=== PATIENT | male | born 1990 | race Caucasian/White ===

== ENCOUNTER 2022-10-25 09:34 | Emergency (ER) | payer BC ==
[~2022-10-25] VITALS: Ht 170.2 cm; Wt 96.6 kg
[2022-10-25 09:52] VITALS: BP 134/84
--- NOTE | 2022-10-25 09:57 | NUR ---
DR SANCHEZ IN TRIAGE FOR EVAL
--- NOTE | 2022-10-25 10:11 | NUR ---
PT AMBULATED TO ER BED 8
--- NOTE | 2022-10-25 10:20 | NUR ---
32YO MALE PT C/O FATIGUENESS, DIZZINESS , CHEST PAIN , HEAD AND BODY ACHES XLASTNIGHT. REPORTS WAKING UP "CONFUSED" THIS MORNING "I WOULD FORGET WHAT I WAS IN THE MIDDLE OF DOING". STATES GOING TO URGENT CARE AND TOLD TO COME TO ER DUE TO CVA S/S. +MILD NAUSEA AND MILD DIFICULTY W/ RAISING EYEBROW. DENIES V/D, CHANGE IN VISION, NUMBING , FEVER, CHILL OR SOB. PT AAOX4, SPEAKING IN CLEAR FULL SENTENCES, AMBULATORY W/ STEADY GAIT. 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 BED AT LOWEST POSITION, BED RAILS UPX2. HX:DENIES NKA
--- NOTE | 2022-10-25 10:22 | NUR ---
pt swabbed for covid(tona) and flu. handed to lab
[2022-10-25 10:27] LABS: BASOPHILS % (AUTO) 0.1 % (0.0-2.0); EOSINOPHILS % (AUTO) 0.1 % (0.0-4.0); HEMOGLOBIN 16.7 g/dL (12.0-18.0); LYMPHOCYTES # (AUTO) 0.6 K/uL (2.0-11.5); LYMPHOCYTES % (AUTO) 5.6 % (20.5-51.1); MEAN CORPUSCULAR HEMOGLOBIN 30 pg (27-31); MEAN CORPUSCULAR HGB CONC 34 g/dL (33-37); MEAN CORPUSCULAR VOLUME 88.6 fL (80-94); MONOCYTES # (AUTO) 0.5 K/uL (0.8-1.0); MONOCYTES % (AUTO) 4.7 % (1.7-9.3); NEUTROPHILS % (AUTO) 89.5 % (42.2-75.2); PLATELET COUNT (AUTO) 343 K/uL (140-450); RED BLOOD CELL COUNT(AUTO) 5.53 MIL/uL (4.20-6.10); RED CELL DISTRIBUTION WIDTH 13.4 % (11.6-13.7)
--- NOTE | 2022-10-25 10:28 | NUR ---
PT TAKEN TO XRAY/CT VIA JOEL
--- NOTE | 2022-10-25 10:28 | NUR ---
XRAY AT BEDSIDE
--- NOTE | 2022-10-25 10:28 | NUR ---
Schuyler little in EDM - 10/25/22 at 1029 by PHSEP PT TAKEN TO XRAY/CT VIA JO[facility]
--- NOTE | 2022-10-25 10:29 | NUR ---
PT TAKEN TO CT VIA JO[facility]
--- NOTE | 2022-10-25 10:35 | NUR ---
PT BROUGHT BACK VIA JO[facility]
[2022-10-25 10:42] LABS: ALBUMIN 4.1 g/dL (3.4-5.0); ANION GAP 13.8 (8-16); ASPARTATE AMINOTRANSFERASE 21 U/L (15-37); CARBON DIOXIDE 26.8 mmol/L (21-32); CHLORIDE 104 mmol/L (98-107); CREATININE 0.8 mg/dL (0.6-1.3); GFR ARICAN-AMERICAN 142 mL/min (>90); GLUCOSE 107 mg/dL (74-106); POTASSIUM 3.6 mmol/L (3.5-5.1); SODIUM SERUM 141 mmol/L (136-145); TOTAL BILIRUBIN 0.4 mg/dL (0.0-1.0); UREA NITROGEN, BLOOD 14 mg/dL (7-18)
--- NOTE | 2022-10-25 11:16 | NUR ---
32/M PRESENTS TO ED WITH C/O BODY ACHES, DIZZINESS, INTERMITTENT CHEST PAIN AND FATIGUE SINCE WAKING UP THIS MORNING. PATIENT WAS SEEN AT URGENT CARE AND ADVISED TO COME TO ED FOR FURTHER EVALUATION. PATIENT DENIES N/V/D, FEVERS OR RECENT SICK CONTACTS. DENIES VISION CHANGES OR NUMBNESS, PATIENT AOX4, SPEAKING IN FULL CLEAR SENTENCES.
[2022-10-25] MEDS ORDERED: MECLIZINE 25 MG TAB PO ONE (11:25)
[2022-10-25] MEDS ORDERED: KETOROLAC 15 MG/ML VIAL IVP ONE (11:25)
[2022-10-25] MEDS ORDERED: ACETAMINOPHEN 325 MG TAB PO ONE (11:25)
[2022-10-25] MEDS ORDERED: NACL 0.9% 1,000 ML IV ONE (11:45)
[2022-10-25 12:40] LABS: APPEARANCE,URINE CLEAR (CLEAR); BILIRUBIN,URINE NEGATIVE (NEGATIVE); BLOOD, URINE TRACE-I (NEGATIVE); COLOR,URINE YELLOW (YELLOW); LEUKOCYTE ESTERASE ,URINE NEGATIVE (NEGATIVE); NITRITE, URINE NEGATIVE (NEGATIVE); UGLUCOSE NEGATIVE (NEGATIVE)
[2022-10-25 12:52] LABS: RBC,URINE 0-5 /HPF (0-5); WBC,URINE 0-5 /HPF (0-5)
[2022-10-25 12:55] LABS: BARBITURATE, URINE NEGATIVE ng/ml (NEG <=200); BENZODIAZEPINE, URINE NEGATIVE ng/mL (NEG <=200); CANNABINOID, URINE NEGATIVE ng/mL (NEG <=50); COCAINE, URINE NEGATIVE ng/mL (NEG <=300); OPIATE, URINE NEGATIVE ng/mL (NEG <=2000); PHENCYCLIDINE SCREEN,URINE NEGATIVE ng/mL (NEG <=25)
--- NOTE | 2022-10-25 13:40 | NUR ---
IV removed, catheter intact and site benign. Applied folded 4x4 gauze and tape to stop bleeding.
[2022-10-25 13:42] VITALS: BP 120/84
--- NOTE | 2022-10-25 13:42 | NUR ---
Patient discharged with v/s stable. Written and verbal after care instructions FOR MUSCLE PAIN, NON SPECIFIC CHEST PAIN AN DDIZZINESS given and explained. Patient verbalized understanding. Ambulatory with steady gait. All questions addressed prior to discharge. Advised to follow up with PMD.
== END 2022-10-25 13:42 | disposition home or self-care (01) ==
LOC: MED 09:35
DX: R07.9 Chest pain, unspecified (principal); Z20.822 Contact with and (suspected) exposure to COVID-19; R53.1 Weakness
CPT/HCPCS: 36415; 70450; 71045; 80053; 80305; 81001; 82550; 84484; 85025; 87086; 87426; 87804; 93005; 96360; 99285; Q0092; J1885; J8597